=== PATIENT | female | born 1975 ===

== ENCOUNTER 2017-07-14 14:06 | Emergency (ER) | payer OTHER ==
--- NOTE | 2017-07-14 15:53 | ED ---
Influenza-Like Illness - HPI Summary HPI Summary: Patient here with URI symptoms 1 week. She reports headache, ear pressure, dry cough, fatigue, chills and sore throat. She denies nausea, vomiting, diarrhea, fever. Still eating and drinking but she does report it's less due to sore throat and decreased appetite. Denies abdominal pain neck stiffness. 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 Has tried [id number] cold remedy medications with minimal relief. Ibuprofen does take the edge of her sore throat when it's in her system. Last took this morning. - History of Current Complaint Chief Complaint: EDThroatPain Time Seen by Provider: 07/14/17 15:21 Hx Obtained From: Patient - Allergy/Home Medications Allergies/Adverse Reactions: Allergies Allergy/AdvReac Type Severity Reaction Status Date / Time No Known Allergies Allergy Verified 07/14/17 14:16 PMH/Surg Hx/FS Hx/Imm Hx Previously Healthy: Yes Endocrine/Hematology History: Denies: Autoimmune Disease Respiratory History: Reports: Hx Seasonal Allergies Infectious Disease History: No Infectious Disease History: Denies: Traveled Outside the [place] in Last 30 Days - Family History Known Family History: Positive: None - Social History Occupation: Employed Full-time - teacher Lives: With Family Alcohol Use: Weekly Hx Substance Use: No Substance Use Type: Reports: None Hx Tobacco Use: No Smoking Status (MU): Never Smoked Tobacco Review of Systems Positive: Chills, Fatigue. Negative: Fever Eyes: Negative Negative: Drainage, Erythema Positive: Sore Throat, Ear Ache. Negative: Nasal Discharge Cardiovascular: Negative Positive: Cough Gastrointestinal: Negative Positive: no symptoms reported Musculoskeletal: Negative Skin: Negative Positive: Headache. Negative: Weakness, Paresthesia, Numbness, Syncope, Slurred Speech Psychological: Normal All Other Systems Reviewed And Are Negative: Yes Physical Exam Triage Information Reviewed: Yes Vital Signs On Initial Exam: Initial Vitals Temp Pulse Resp BP Pulse Ox 97.7 F 79 20 115/45 98 07/14/17 14:15 07/14/17 14:15 07/14/17 14:15 07/14/17 14:15 07/14/17 14:15 Vital Signs Reviewed: Yes Appearance: Positive: No Pain Distress, Well-Nourished, Ill-Appearing - mild fatigue Skin: Positive: Warm, Skin Color Reflects Adequate Perfusion, Dry - no rash Head/Face: Positive: Normal Head/Face Inspection Eyes: Positive: Normal, EOMI, Conjunctiva Clear. Negative: Conjunctiva Inflammed, Discharge ENT: Positive: Hearing grossly normal, Pharyngeal erythema - mild - cnobblestoning - no edema, no exudates, TMs normal, Sinus tenderness - frontal and maxillary B/L, Other - mild laryngitis vs soft talker. Negative: Nasal congestion, Nasal drainage, Tonsillar swelling, Tonsillar exudate, Trismus, Muffled voice Dental: Negative: Abscess @ Neck: Positive: Supple, Nontender, No Lymphadenopathy Respiratory/Lung Sounds: Positive: Clear to Auscultation, Breath Sounds Present. Negative: Rales, Rhonchi, Wheezes Cardiovascular: Positive: Normal, RRR, S1, S2 Abdomen Description: Positive: Nontender, No Organomegaly, Soft Bowel Sounds: Positive: Present Musculoskeletal: Positive: Normal, Strength/ROM Intact Neurological: Positive: Normal, Sensory/Motor Intact, Alert, Oriented to Person Place, Time, CN Intact II-III Psychiatric: Positive: Normal Diagnostics - Vital Signs Vital Signs Temp Pulse Resp BP Pulse Ox 07/14/17 14:15 97.7 F 79 20 115/45 98 - Laboratory Lab Statement: Any lab studies that have been ordered have been reviewed, and results considered in the medical decision making process. Discharge - Discharge Plan Condition: Stable Disposition: HOME Patient Education Materials: Upper Respiratory Infection (ED) Forms: *Work Release Referrals: No Primary Care Phys,NOPCP [Primary Care Provider] - Additional Instructions: Perform nasal wash/netti pot 2 x day with 8 ounces of warm water + 1/4 teaspoon of salt or saline nasal spray as needed for nasal congestion Perform throat gargles with warm salt water as needed for sore throat Drink 60+ ounces of water daily Sleep 8+ hours per night Avoid Dairy and sugar Drink hot herbal/decaf tea with lemon & honey Drink chicken broth Use a humidifier in your house, but especially near bed at night. You may also keep home temperature at 68F or less. Try a facial steam with or without eucalyptus essential oil or Clarence's vapor rub for decongestion. Cpugh drops/throat lozenges (ie. Arauz's, Ricola, etc) Avoid smoke, candles, perfumes/colonge, air fresheners, scented lotions, etc Consider taking Vitamin D3 5,000iu and Vitamin C 1,000mg every day during illness *If you develop fever > 103F despite trying ibuprofen and acetaminophen, intractable vomiting/diarrhea, chest pain, shortness of breath, return to ED
[2017-07-14] MEDS ORDERED: Ibuprofen TAB* 800 MG PO ONE (15:54)
[2017-07-14 17:06] VITALS: BP 120/50
== END 2017-07-14 17:04 | disposition home or self-care (01) ==
LOC: ED 14:06
DX: R51 Headache (principal); H93.8X9 Other specified disorders of ear, unspecified ear; R05 Cough; R53.83 Other fatigue; R68.83 Chills (without fever); J02.9 Acute pharyngitis, unspecified
CPT/HCPCS: 87502; 87651; 99282; A9270-GY

== ENCOUNTER 2017-07-18 14:48 | Emergency (ER) | payer OTHER ==
[2017-07-18 15:50] VITALS: BP 124/88
--- NOTE | 2017-07-18 17:17 | UC ---
Throat Pain/Nasal Emil HPI - HPI Summary HPI Summary: 10 days of worsening sinus and ear pain has been using flonase and decongestants with out relief-- has had sinus infections in the past that needed to be treated with antibiotics - History of Current Complaint Chief Complaint: UCRespiratory Stated Complaint: RESPIRATORY,SINUS & EAR PAIN,BODY ACHES Time Seen by Provider: 07/18/17 17:11 Hx Obtained From: Patient Hx Last Menstrual Period: 20 days ?: No Onset/Duration: Gradual Onset, Lasting Days - 10, Worse Since - past 3 days Severity: Severe Pain Intensity: 7 Pain Scale Used: 0-10 Numeric Cough: None Associated Signs & Symptoms: Positive: Sinus Discomfort, Nasal Discharge - Allergies/Home Medications Allergies/Adverse Reactions: Allergies Allergy/AdvReac Type Severity Reaction Status Date / Time No Known Allergies Allergy Verified 07/14/17 14:16 PMH/Surg Hx/FS Hx/Imm Hx Previously Healthy: Yes - Surgical History Surgical History: Yes Surgery Procedure, Year, and Place: c-sections x 2. right wrist surgery - Family History Known Family History: Positive: None - Social History Occupation: Employed Full-time Lives: With Family Alcohol Use: Weekly Substance Use Type: None Smoking Status (MU): Never Smoked Tobacco Review of Systems Constitutional: Chills, Fatigue Skin: Negative Eyes: Negative ENT: Ear Ache, Nasal Discharge, Sinus Congestion, Sinus Pain/Tenderness Respiratory: Negative Cardiovascular: Negative Gastrointestinal: Negative Genitourinary: Negative Motor: Negative Neurovascular: Negative Musculoskeletal: Negative Neurological: Headache Psychological: Negative Is Patient Immunocompromised?: No All Other Systems Reviewed And Are Negative: Yes Physical Exam Triage Information Reviewed: Yes Appearance: Well-Nourished, Ill-Appearing, Pain Distress Vital Signs: Initial Vital Signs Temp 98.7 F 07/18/17 15:45 Pulse 76 07/18/17 15:45 Resp 15 07/18/17 15:45 BP 124/88 07/18/17 15:45 Pulse Ox 100 07/18/17 15:45 Vital Signs Reviewed: Yes Eye Exam: Normal Eyes: Positive: Conjunctiva Clear ENT Exam: Normal ENT: Positive: Normal ENT inspection, Hearing grossly normal, Pharynx normal, Nasal congestion, Nasal drainage, TMs normal, Sinus tenderness, Uvula midline. Negative: Tonsillar swelling, Tonsillar exudate, Trismus, Muffled voice, Hoarse voice, Dental tenderness Dental Exam: Normal Neck exam: Normal Neck: Positive: Supple, Nontender, No Lymphadenopathy Respiratory Exam: Normal Respiratory: Positive: Chest non-tender, Lungs clear, Normal breath sounds, No respiratory distress, No accessory muscle use Cardiovascular Exam: Normal Cardiovascular: Positive: RRR, No Murmur, Pulses Normal, Brisk Capillary Refill Musculoskeletal Exam: Normal Musculoskeletal: Positive: Strength Intact, ROM Intact, No Edema Neurological Exam: Normal Neurological: Positive: Alert, Muscle Tone Normal Psychological Exam: Normal Skin Exam: Normal Throat Pain/Nasal Course/Dx - Course Assessment/Plan: continue flonase and decongestants, increase fluids, augmentin follow with primary care as needed - Differential Dx/Diagnosis Provider Diagnoses: Acute sinusitis Discharge - Discharge Plan Condition: Stable Disposition: HOME Prescriptions: Amoxicillin/Clavulanate TAB* [Augmentin TAB 875*] 875 mg PO BID #20 tab Patient Education Materials: Sinusitis (ED) Referrals: Jose A Londono MD [Primary Care Provider] - If Needed
== END 2017-07-18 17:15 | disposition home or self-care (01) ==
LOC: UCEAST 14:48
DX: J01.90 Acute sinusitis, unspecified (principal)
CPT/HCPCS: 99212; G0463